=== PATIENT | female | born 1965 | race Caucasian/White ===

== ENCOUNTER 2021-03-21 20:00 | Emergency (ER) | payer OTHER ==
[2021-03-21 21:39] LABS: HEMOGLOBIN 12.4 gm/dl (12.3-15.3); RED BLOOD COUNT 3.96 M/UL (4.00-5.10); WHITE BLOOD COUNT 7.2 K/UL (4.5-11.0)
[2021-03-21 21:58] LABS: BUN/CREATININE RATIO 14 (0-10)
[2021-03-21] MEDS ORDERED: OMNICEF 300 MG300 MG PO (22:27)
== END 2021-03-21 22:45 | disposition home or self-care (01) ==
LOC: ER1 20:00
PROVIDERS: Physician Assistant
DX: N39.0 Urinary tract infection, site not specified (principal); Z90.710 Acquired absence of both cervix and uterus
CPT/HCPCS: 80053; 81001; 83690; 85025; 96372; 99284